=== PATIENT | female | born 1950 | race Caucasian/White ===

== ENCOUNTER 2017-05-17 07:05 | Emergency (ER) | payer MEDICARE ==
[2017-05-17 07:25] VITALS: BP 116/70
--- NOTE | 2017-05-17 08:11 | UC ---
FLU HPI - HPI Summary HPI Summary: 66yo WF c/o f/c/bodyaches, sore throat, chesty cough x 2-3 days. Is on Z tiffanie day #2/5, cough is somewhat better - History of Current Complaint Chief Complaint: UCGeneralIllness Stated Complaint: FLU SYMPTOMS Time Seen by Provider: 05/17/17 07:32 Hx Obtained From: Patient Onset/Duration: Gradual Onset, Lasting Days Severity Currently: Moderate Pain Intensity: 0 Related Hx: Possible Flu/Infectious Exposure - Risk Factors Influenza Risk Factors: Negative - Allergy/Home Medications Allergies/Adverse Reactions: Allergies Allergy/AdvReac Type Severity Reaction Status Date / Time No Known Allergies Allergy Verified 05/17/17 07:25 Home Medications: Home Medications Azithromycin TAB* [Zithromax TAB (Z-TIFFANIE) 250 mg #6 tabs] 1 tab PO DAILY [History Confirmed 05/17/17] Folic Acid/Multivit-Min/Lutein [Adult Multivitamin Gummies] 1 tab PO DAILY 05/17 [History Confirmed 05/17/17] Ibuprofen [Advil] 1 tab PO Q6HR PRN 05/17/17 [History Confirmed 05/17/17] Vit D3/Folic Acid/B2/B6/B12 [Folgard Tablet] 1 tab PO DAILY 05/17/17 [History Confirmed 05/17/17] PMH/Surg Hx/FS Hx/Imm Hx - Additional Past Medical History Additional PMH: Breast Ca in remission Previously Healthy: Yes Other Cancer History: Remote hx of breast ca - Surgical History Surgical History: Yes Surgery Procedure, Year, and Place: lumpectomy - Social History Alcohol Use: None Substance Use Type: None Smoking Status (MU): Never Smoked Tobacco - Immunization History Most Recent Tetanus Shot: UTD Review of Systems Constitutional: Fever, Chills Skin: Bruising Eyes: Negative ENT: Sore Throat Respiratory: Cough Cardiovascular: Negative Gastrointestinal: Negative Genitourinary: Negative Motor: Negative Neurovascular: Negative Musculoskeletal: Negative Neurological: Negative Psychological: Negative Is Patient Immunocompromised?: No All Other Systems Reviewed And Are Negative: Yes Physical Exam Triage Information Reviewed: Yes Appearance: No Pain Distress, Ill-Appearing Vital Signs: Initial Vital Signs Temp 37.1 C 05/17/17 07:20 Pulse 84 05/17/17 07:20 Resp 20 05/17/17 07:20 BP 116/70 02/15/18 07:20 Pulse Ox 96 05/17/17 07:20 Eye Exam: Normal ENT: Positive: Normal ENT inspection Dental Exam: Normal Neck exam: Normal Neck: Positive: 1 Respiratory Exam: Normal Respiratory: Positive: No respiratory distress, Rhonchi. Negative: Accessory muscle use, Stridor, Wheezing Cardiovascular Exam: Normal Abdominal Exam: Normal Musculoskeletal Exam: Normal Neurological Exam: Normal Psychological Exam: Normal Skin Exam: Normal Flu Course/Dx - Course Course Of Treatment: Flu B positive but and day 3 of flu-like illness, will tx with Tamiflu, may be out of therapuetic window and explained to pt but pt still insists on taking the Tamiflu - Differential Dx/Diagnosis Differential Diagnosis/HQI/PQRI: Bronchitis, Influenza, Upper Respiratory Infection Provider Diagnoses: Influenza B Discharge - Discharge Plan Condition: Stable Disposition: HOME Prescriptions: Oseltamivir CAP* [Tamiflu CAP*] 75 mg PO BID 5 Days #10 cap Patient Education Materials: Influenza (ED) Referrals: Audelia Kuhn MD [Primary Care Provider] - Additional Instructions: REST, supportive tx, PO hydration, activity as tolerated
== END 2017-05-17 08:05 | disposition home or self-care (01) ==
LOC: UCEAST 07:05
DX: J10.1 Influenza due to other identified influenza virus with other respiratory manifestations (principal); Z85.3 Personal history of malignant neoplasm of breast
CPT/HCPCS: 87502; 99212; G0463

== ENCOUNTER 2019-06-15 07:02 | Emergency (ER) | payer MEDICARE ==
--- OUTSIDE RECORDS SUMMARY | 2019-06-15 07:09 | XMS REPORT | Continuity of Care Document ---
:1950 External Reference #:[id number] Author Name Edson Isabel MD (transmitted by agent of provider Keanu Cruz) Address [address] [place] [address] Care Team Providers Name Role Phone Audelia Kuhn MD - Internal Medicine Care Team Information Chaplaincy [phone] Problems Description No Information Available Social History Type Date Description Comments Sex Unknown Tobacco Use Start: Unknown Patient has never smoked Smoking Status Reviewed: 04/23/19 Patient has never smoked Allergies, Adverse Reactions, Alerts Description No Known Drug Allergies Medications Description No Active Medications Immunizations Description No Information Available Vital Signs Date Vital Result Comment 04/23/2019 2:18pm Heart Rate 84 /min BP Systolic Sitting 108 mmHg BP Diastolic Sitting 70 mmHg Respiratory Rate 16 /min Body Temperature 97.3 F 10/24/2018 8:31am Heart Rate 66 /min BP Systolic Sitting 124 mmHg BP Diastolic Sitting 82 mmHg Respiratory Rate 12 /min Body Temperature 97.2 F Results Test Acquired Date Facility Test Result H/L Range Note Laboratory test 04/23/2019 [facility] <pending> finding [address] [place] [address] [phone] Laboratory test 10/24/2018 [facility] SEE RESULT [address] [place] [address] [phone] 1 SEE RESULT BELOW Name: BRI DAVIS : [address]: Echo Ferro MD Acct: [id number] Unit: [id number] AGE: 68 Location: [facility] Re10/24/18 SEX: F Status: REG REF SPEC: [id number] JONO: 10/24/18-[address] [facility] [address]: Echo Ferro MD REQ: [id number] RECD: 10/24/18 STATUS: JIM BROCK DR: Audelia Kuhn MD _ ORDERED: LEVEL 4 COMMENTS: [id number] FINAL DIAGNOSIS Skin, left thigh, excisional biopsy: -- Verruca vulgaris. -- The lesion is excised in the planes of sectioning examined. CLINICAL HISTORY No history given GROSS DESCRIPTION The specimen is received in formalin labeled, Left Thigh Skin Lesion, and consists of a 0.7 cm dumont-white circular skin punch excised to a depth of 0.4 cm predominantly surfaced by a 0.6 x 0.5 x 0.2 cm dumont-white to brown keratotic nodule. The specimen is trisected and submitted entirely in one cassette. Signed by and Reported on: Telma Head MD 10/25/18 1311 END OF REPORT DEPARTMENT OF PATHOLOGY, [address] [place] [address] Noel Gandhi M.D. Director [facility] # [id number] Procedures Date Code Description Status 04/23/2019 70294 Excision Benign Lesion Incl Diameter 1.1 - 2.0 CM Completed Scalp,Neck,Hand 04/23/2019 66633 Excise Benign Lesion 2.1-3CM Trunk/Arm/Leg Completed 10/24/2018 79020 Punch Biopsy Of Skin Completed 10/10/2018 [id number] Mammogram Completed 10/04/2017 [id number] Mammogram Completed 09/04/2016 [id number] Mammogram Completed 08/31/2015 [id number] Mammogram Completed 08/27/2014 [id number] Mammogram Completed 07/15/2013 [id number] Mammogram Completed 10/24/2011 [id number] Mammogram Completed Medical Devices Description No Information Available Encounters Description No Information Available Assessments Date Code Description Provider 04/23/2019 D48.5 Neoplasm of uncertain behavior of skin Edson Isabel MD 10/24/2018 D48.7 Neoplasm of uncertain behavior of other Echo Ferro MD specified sites 10/24/2018 Z85.3 Personal history of malignant neoplasm of Echo Ferro MD breast Plan of Treatment 04/23/2019 - Edson Isabel, MDD48.5 Neoplasm of uncertain behavior of skinFollow up:Sutures will be removed next week in office-appointment not needed Functional Status Description No Information Available Mental Status Description No Information Available Referrals Description No Information Available
[2019-06-15 07:16] VITALS: BP 144/78
[2019-06-15 07:38] LABS: Influenza A Molecular Negative (Negative); Influenza B Molecular Negative (Negative)
--- NOTE | 2019-06-15 07:41 | ED ---
Influenza-Like Illness - HPI Summary HPI Summary: 69 yo WF p/w f/c/bodyaches and extreme fatigue since yesterday, also c/o left eyelid irritation tenderness and mild itchiness x 2 days, denies n/v/d - History of Current Complaint Chief Complaint: UCEye Time Seen by Provider: 06/15/19 07:13 Hx Obtained From: Patient Onset/Duration: Lasting Days Severity: Moderate Associated Signs & Symptoms: Fever, Myalgia, Nasal Congestion - Risk Factors Influenza Risk Factors: Negative - Allergy/Home Medications Allergies/Adverse Reactions: Allergies Allergy/AdvReac Type Severity Reaction Status Date / Time No Known Allergies Allergy Verified 06/15/19 07:16 Home Medications: Home Medications Folic Acid/Multivit-Min/Lutein [Adult Multivitamin Gummies] 1 tab PO DAILY 05/17 [History Confirmed 06/15/19] Ibuprofen [Advil] 1 tab PO Q6HR PRN 05/17/17 [History Confirmed 06/15/19] Vit D3/Folic Acid/B2/B6/B12 [Folgard Tablet] 1 tab PO DAILY 05/17/17 [History Confirmed 06/15/19] Ciprofloxacin 0.3% OPTH.RELL* [Cipro 0.3% Opth*] 1 drop LEFT EYE Q6H 7 Days #1 btl 06/15/19 [Rx] Neomycin/Polymyxin B/Dexametha [Maxitrol] 1 oin OP TID 7 Days #1 tube 06/15/19 [ Rx] PMH/Surg Hx/FS Hx/Imm Hx Previously Healthy: Yes Respiratory History: Denies: Hx Asthma, Hx Chronic Obstructive Pulmonary Disease (COPD), Other Respiratory Problems/Disorders - Cancer History Cancer Type, Location and Year: bilateral breast cancer with lumpectomy with radiation Hx Chemotherapy: No Hx Radiation Therapy: Yes - BREAST - Surgical History Surgery Procedure, Year, and Place: lumpectomy Infectious Disease History: Yes Infectious Disease History: Reports: Hx Shingles Denies: Traveled Outside the [place] in Last 30 Days - Family History Known Family History: Positive: Non-Contributory - Social History Occupation: Employed Full-time Alcohol Use: None Substance Use Type: Reports: None Smoking Status (MU): Never Smoked Tobacco Review of Systems Positive: Fever, Chills, Fatigue Positive: Erythema - left eyelid Positive: Other Cardiovascular: Negative Respiratory: Negative Gastrointestinal: Negative Genitourinary: Negative Musculoskeletal: Negative Skin: Negative Neurological/Mental Status: Negative Positive: Headache Positive: Anxious All Other Systems Reviewed And Are Negative: Yes Physical Exam - Summary Physical Exam Summary: Vital Signs Reviewed: Yes Gen: NAD Eye Exam: left upper eyelid erythema, no drainage, FAINT left conjunctival erythema vs right, NO yellow d/c Eyes: Positive: Conjunctiva Clear ENT: Normal ENT inspection Neck: Supple Respiratory: Lungs clear, Normal breath sounds. Negative: Crackles, Rhonchi, Stridor, Wheezing Cardiovascular Exam: Normal, RRR, S1, S2 Abdomen: NT/ND Musculoskeletal Exam: Normal Neurological Exam: Normal Psychological Exam: Normal Skin Exam: Normal Vital Signs On Initial Exam: Initial Vitals Temp Pulse Resp BP Pulse Ox 36.8 C 73 16 144/78 98 06/15/19 07:11 06/15/19 07:11 06/15/19 07:11 06/15/19 07:11 06/15/19 07:11 Diagnostics - Vital Signs Vital Signs Temp Pulse Resp BP Pulse Ox 06/15/19 07:11 36.8 C 73 16 144/78 98 - Laboratory Lab Statement: Any lab studies that have been ordered have been reviewed, and results considered in the medical decision making process. Flu Symptom Course/Dx - Diagnoses Provider Diagnoses: Acute viral syndrome, Blepharitis of eyelid of right eye Discharge ED - Sign-Out/Discharge Documenting (check all that apply): Patient Departure All imaging exams completed and their final reports reviewed: No Studies - Discharge Plan Condition: Stable Disposition: HOME Prescriptions: Ciprofloxacin 0.3% OPTH.RELL* [Cipro 0.3% Opth*] 1 drop LEFT EYE Q6H 7 Days #1 btl Neomycin/Polymyxin B/Dexametha [Maxitrol] 1 oin OP TID 7 Days #1 tube Patient Education Materials: Blepharitis (ED), Viral Syndrome (ED) Forms: *Work Release Referrals: Audelia Kuhn MD [Primary Care Provider] - - Billing Disposition and Condition Condition: STABLE Disposition: Home
== END 2019-06-15 08:10 | disposition home or self-care (01) ==
LOC: UCEAST 07:02
DX: H01.004 Unspecified blepharitis left upper eyelid (principal); B34.9 Viral infection, unspecified; R53.83 Other fatigue; M79.10 Myalgia, unspecified site; R09.81 Nasal congestion
CPT/HCPCS: 99212; G0463